=== PATIENT | male | born 1980 | race Two or more races ===

== ENCOUNTER 2021-10-06 06:46 | Emergency (ER) | payer MEDICAID ==
[~2021-10-06] VITALS: Ht 180.3 cm; Wt 100.0 kg
[2021-10-06] MEDS ORDERED: LEVETIRACETAM 1000MG PREMIX 100 ML IV ONE (07:30)
[2021-10-06 07:53] LABS: BASOPHILS % 0.4 % (0.0-2.0); EOSINOPHILS % 3.7 % (0.0-5.0); HEMATOCRIT. 38.3 % (42.0-52.0); HEMOGLOBIN. 12.6 g/dL (14.0-18.0); LYMPHOCYTES % 24.8 % (20.0-50.0); MEAN CORPUSCULAR HEMOGLOBIN 30.5 pg (28.0-32.0); MEAN CORPUSCULAR VOLUME 92.4 fL (80.0-94.0); MEAN PLATELET VOLUME 8.1 fl (7.4-10.4); MONOCYTES % 9.3 % (2.0-8.0); NEUTROPHILS % 61.8 % (40.0-76.0); PLATELET 345 x1000/uL (130-400); RED BLOOD CELL COUNT 4.14 mill/uL (4.7-6.1); RED CELL DISTRIBUTION WIDTH 14.6 % (11.6-14.6)
[2021-10-06 08:05] LABS: CHLORIDE 110 mEq/L (98-107)
[2021-10-06 08:11] LABS: ETHANOL BLOOD < 10 mg/dL
[2021-10-06 10:14] VITALS: BP 130/75
== END 2021-10-06 10:18 | disposition home or self-care (01) ==
LOC: ER 06:46
DX: R56.9 Unspecified convulsions (principal)
CPT/HCPCS: 36415; 80053; 80320; 85025; 93005; 96365; 99284; J1953; G0480

== ENCOUNTER 2021-12-15 15:09 | Emergency (ER) | payer SELFPAY ==
[~2021-12-15] VITALS: Ht 165.1 cm; Wt 76.0 kg
[2021-12-15 15:13] VITALS: BP 142/60
== END 2021-12-15 15:30 | disposition left against medical advice (07) ==
LOC: ER 15:09
DX: R56.9 Unspecified convulsions (principal)
CPT/HCPCS: 99283